=== PATIENT | male | born 1945 | race Caucasian/White ===

== ENCOUNTER → 2017-07-14 07:59 | Day surgery (SDC) | payer MEDICARE ==
[~2017-07-14] VITALS: Ht 177.8 cm; Wt 76.2 kg
[~2017-07-14 07:59] MED LIST: CARDIZEM120 MG PO; CORDARONE200 MG PO; FLOMAX0.4 MG PO; HYDROCODON-ACE1 EAC7 PO; MELATONIN5 MG PO; MIRALAX17 GM PO; REGLAN5 MG PO; RENVELA800 MG PO; VITAMIN D5000 UNIT PO
[2017-07-14 08:54] LABS: BASOPHILS 0.7 % (0-2); EOSINOPHILS 1.6 % (0-7); HEMATOCRIT 34.8 % (42.0-54.0); HEMOGLOBIN 11.2 g/dL (13.5-17.5); IMMATURE GRANULOCYTES 0.4 % (0-5); LYMPHOCYTES 22.1 % (15-50); MCH 29.5 pg (26.0-34.0); MCHC 32.2 g/dL (31.0-37.0); MCV 91.6 fL (80.0-100.0); MONOCYTES 10.4 % (2-11); NEUTROPHILS 64.8 % (40-80); PLATELET COUNT 180 10x3/uL (130-400); RDW 15.5 % (11.5-14.5); WBC 5.5 10x3/uL (4.8-10.8)
[2017-07-14 09:05] LABS: ANION GAP 17.5 mmol/L (8-16); CALCIUM 7.8 mg/dL (8.5-10.1); CREATININE - SERUM 6.5 mg/dL (0.6-1.3); POTASSIUM - SERUM 4.5 mmol/L (3.5-5.1)
[2017-07-14 09:06] VITALS: Ht 177.8 cm; Wt 76.2 kg
[2017-07-14 09:08] LABS: APTT 30.9 SECONDS (22.8-39.4); INR 1.12 (0.85-1.17)
--- NOTE | 2017-07-14 11:13 | NUR ---
SLING TO LEFT ARM, WEAR FIRST 24HR PER DR. GLEZ, R/T ANESTHESIA BLOCK
--- NOTE | 2017-07-14 15:30 | NUR ---
1300 IV DC WITH CATHER TIP INTACT
--- NOTE | 2017-07-17 11:12 | OP ---
PATIENT NAME: GUILHERME JUSTICE MEDICAL RECORD: [id number] :49 LOCATION:[facility] ADMISSION DATE: SURGEON: ZAINA GLEZ MD DATE OF OPERATION: 07/14/2017 DATE OF PROCEDURE: 07/14/2017 REFERRING PHYSICIAN: Leonard Rosas MD SURGEON: Zaina Glez MD PREOPERATIVE DIAGNOSES: End-stage renal disease and dependence on hemodialysis. POSTOPERATIVE DIAGNOSES: End-stage renal disease and dependence on hemodialysis. OPERATION PERFORMED: Creation of a left wrist Yovana-type radiocephalic AV fistula. ANESTHESIA: Regional nerve block plus MAC per LIVING SKILLS ADVISOR. PREOPERATIVE NOTE: Mr. Justice is a 72-year-old -Indian with end-stage renal disease, who requires long-term access. He has pretty good vein in his left arm at the wrist and is brought to the OR today for creation of a fistula. Under nerve block and the sedation, the patient was placed in supine position, prepped and draped in sterile manner. The patient had good vasodilatation resulting from the nerve block. I did apply some nitroglycerin ointment and a proximal venous tourniquet and then examined him with ultrasound and confirmed that the cephalic vein from the wrist to the shoulder was suitable. I then made a longitudinal incision at the wrist to mobilize the cephalic vein and the radial artery. The vessels were controlled with atraumatic clamps and Silastic loops. The vein was ligated distally and transected and bevelled and flushed with heparinized saline. The artery was occluded with Silastic loops and an arteriotomy approximately 6 mm in length was made and the artery flushed proximally and distally with heparinized saline. The end of vein was then anastomosed to the side of artery with continuous running 7-0 Prolene. When complete and with release of the occluding clamps and loops, excellent flow was established in the new fistula as demonstrated by palpable thrill and continuous pulsatile flow on audible Doppler signal. The suture line was hemostatic. The wound was irrigated with Ancef and gentamicin solution. It was then closed with interrupted inverted 3-0 Vicryl and running intracuticular 4-0 Monocryl and Dermabond glue. It was dressed with Maxorb Ag, Tegaderm and Cavilon skin prep. The patient was awakened and then taken to the recovery room where he arrived with an audible bruit over the new fistula. Blood loss during the procedure was trivial and unreplaced. All sponges, instruments and needles were accounted for. No drain was used and no surgical specimen was submitted for histopathology. PLAN: The patient should be able to be discharged this afternoon. He will return to see me in my office next week. He will continue all of the same medications and renal diet. He may shower and wash over the waterproof plastic dressing of course. OPERATIVE REPORT [id number] CALIXTOGUILHERME ZOFIA TRANSINT:[id number] Voice Confirmation ID: [id number] DOCUMENT ID: [id number] ZAINA GLEZ MD at 1112 CC: LEONARD ROSAS MD [id number] DICTATION DATE: 07/14/17 1155 HOTEL BREAKFAST ATTENDANT: 07/14/17 1218 [facility] 07/14/17 [facility] [address] [place] [address]
== END | disposition home or self-care (01) ==
LOC: D.OPS 07:59
PROVIDERS: Internal Medicine Nephrology
DX: I12.0 Hypertensive chronic kidney disease with stage 5 chronic kidney disease or end stage renal disease (principal); E11.22 Type 2 diabetes mellitus with diabetic chronic kidney disease; N18.6 End stage renal disease; Z99.2 Dependence on renal dialysis; Z01.812 Encounter for preprocedural laboratory examination

== ENCOUNTER 2017-09-01 08:05 | Outpatient (CLI) | payer MEDICARE ==
[~2017-09-01] VITALS: Ht 177.8 cm; Wt 76.2 kg
[~2017-09-01 08:05] MED LIST changes: -MIRALAX17 GM PO
[2017-09-01 09:16] LABS: BASOPHILS 0.9 % (0-2); EOSINOPHILS 2.2 % (0-7); HEMATOCRIT 39.8 % (42.0-54.0); HEMOGLOBIN 12.7 g/dL (13.5-17.5); IMMATURE GRANULOCYTES 0.4 % (0-5); LYMPHOCYTES 17.7 % (15-50); MCH 29.6 pg (26.0-34.0); MCHC 31.9 g/dL (31.0-37.0); MCV 92.8 fL (80.0-100.0); MEAN PLATELET VOLUME 8.8 fL (7.4-10.4); MONOCYTES 8.8 % (2-11); PLATELET COUNT 157 10x3/uL (130-400); RBC 4.29 10x6/uL (4.20-6.10); RDW 14.8 % (11.5-14.5); WBC 6.9 10x3/uL (4.8-10.8)
[2017-09-01 09:28] LABS: APTT 32.8 SECONDS (22.8-39.4); INR 1.13 (0.85-1.17); PROTIME 14.1 SECONDS (11.6-15.0)
[2017-09-01 09:31] LABS: CALCIUM 8.6 mg/dL (8.5-10.1); CARBON DIOXIDE 29.5 mmol/L (21.0-32.0); CREATININE - SERUM 7.2 mg/dL (0.6-1.3); POTASSIUM - SERUM 4.5 mmol/L (3.5-5.1)
[2017-09-01] MEDS ORDERED: MIRALAX17 GM PO (12:13)
[2017-09-01 12:16] VITALS: Ht 177.8 cm; Wt 76.2 kg
== END 2017-09-01 15:30 | disposition home or self-care (01) ==
LOC: D.OPS 08:05 → EDSTATUS 12:30 → D.OPS 12:30
PROVIDERS: Internal Medicine Nephrology
DX: E11.22 Type 2 diabetes mellitus with diabetic chronic kidney disease (principal); I12.0 Hypertensive chronic kidney disease with stage 5 chronic kidney disease or end stage renal disease; N18.6 End stage renal disease; Z99.2 Dependence on renal dialysis; Z01.810 Encounter for preprocedural cardiovascular examination; Z01.811 Encounter for preprocedural respiratory examination; Z01.812 Encounter for preprocedural laboratory examination; Z53.9 Procedure and treatment not carried out, unspecified reason

== ENCOUNTER 2017-10-06 06:03 | Day surgery (SDC) | payer MEDICARE ==
--- NOTE | ~2017-10-06 | OP ---
PATIENT NAME: GUILHERME JUSTICE MEDICAL RECORD: [id number] :49 LOCATION:[facility] ADMISSION DATE: SURGEON: ZAINA GLEZ MD DATE OF OPERATION: 10/06/2017 REFERRING PHYSICIAN: Leonard Rosas MD PREOPERATIVE DIAGNOSES: End-stage renal disease independence on hemodialysis and thrombosis of recently constructed left wrist radiocephalic Yovana type arteriovenous fistula. POSTOPERATIVE DIAGNOSES: End-stage renal disease independence on hemodialysis and thrombosis of recently constructed left wrist radiocephalic Yovana type arteriovenous fistula. OPERATION PERFORMED: Creation of a Yovana type brachiocephalic AV fistula at the antecubital level in the left upper extremity. SURGEON: Zaina Glez MD ANESTHESIA: Regional block and general with LMA per SEXUAL ASSAULT COUNSELLOR. PREOPERATIVE NOTE: Mr. Justice is a 72-year-old white male patient with end-stage renal disease, presently on dialysis with a right internal jugular tunneled dialysis catheter. I have created a left wrist radiocephalic fistula, which although it functioned quite well at first, thrombosed early and never matured and was never used. He still requires long-term access and he is brought back to the operating room for another try. Hopefully, the cephalic vein above the level of the initial anastomosis has dilated and bevel along with the nerve block will make the operation easier and more successful. DESCRIPTION OF PROCEDURE: Under anesthesia in supine position, the patient was prepped and draped in sterile manner. I applied a Saige drain to the upper arm and nitroglycerin paste to the skin of the arm and forearm. Duplex ultrasound exam was then done and I found that the brachial artery and cephalic vein at the antecubital level just below the antecubital crease was the best combination for his next fistula. I then made a transverse incision, mobilized both vessels. Closed the vein distally with 2 Hemoclips and then transected and bevelled it. It was flushed with heparinized saline and distended hydrostatically, was treated with topical papaverine and occluded proximally with a bulldog clamp. The artery was exposed and controlled proximally and distally with Silastic loops. The artery was opened and an approximately 6-7 mm long arteriotomy made. The artery was flushed proximally and distally with heparinized saline and the vein was then anastomosed the end of vein to side of artery with running 7-0 Prolene. When completed, the anastomosis was watertight and under no tension and good flow immediately developed within it and there was excellent pulsatile and continuous Doppler flow within the new fistula and in the proximal brachial artery. In the distal brachial artery, there was a normal pulsatile high resistance flow pattern, which was also very very satisfactory. The wound was closed with interrupted inverted 3-0 Vicryl and running intracuticular 4-0 Monocryl and Dermabond glue. It was dressed with Maxorb Ag, Tegaderm, and Cavilon skin prep and the patient awakened and taken to the recovery room where he was found to have an excellent bruit. He will be discharged to home today. Given a prescription for 10 tablets of OPERATIVE REPORT [id number] CALIXTOGUILHERMEMARIA G Lovett , he can take 1 every 4 hours p.r.n. for pain, no refills of course. Used to return to see me and have an appointment made to return to see me in 2 weeks in my office. He can leave the initial operative dressing on until that time or he can remove it whenever he wishes. He can wash over the waterproof plastic dressing with soap and water as desired. He will continue all of the same home medications. Continue his routine dialysis schedule and his activities and renal diet. TRANSINT:[id number] Voice Confirmation ID: [id number] DOCUMENT ID: [id number] ZAINA GLEZ MD at 1459 CC: LEONARD ROSAS [id number] DICTATION DATE: 10/06/17 1117 HEADING MACHINE OPERATOR: 10/06/17 1312 [facility] 10/06/17 [facility] [address] [place] [address]
[~2017-10-06 06:03] MED LIST changes: +MIRALAX17 GM PO
[2017-10-06] MEDS ORDERED: MULTIVITAMIN PO (06:56)
[2017-10-06] MEDS ORDERED: GLUCOSAMINE & C1 CAP PO (06:57)
[2017-10-06 07:12] LABS: CALCIUM 8.4 mg/dL (8.5-10.1); CARBON DIOXIDE 25.9 mmol/L (21.0-32.0); CREATININE - SERUM 6.9 mg/dL (0.6-1.3); POTASSIUM - SERUM 3.9 mmol/L (3.5-5.1)
[2017-10-06 07:16] LABS: BASOPHILS 0.9 % (0-2); EOSINOPHILS 2.1 % (0-7); HEMATOCRIT 35.9 % (42.0-54.0); HEMOGLOBIN 11.6 g/dL (13.5-17.5); IMMATURE GRANULOCYTES 0.4 % (0-5); MCH 29.8 pg (26.0-34.0); MCHC 32.3 g/dL (31.0-37.0); MCV 92.3 fL (80.0-100.0); MEAN PLATELET VOLUME 8.9 fL (7.4-10.4); MONOCYTES 7.7 % (2-11); NEUTROPHILS 67.9 % (40-80); PLATELET COUNT 123 10x3/uL (130-400); RBC 3.89 10x6/uL (4.20-6.10); RDW 15.6 % (11.5-14.5); WBC 6.8 10x3/uL (4.8-10.8)
[2017-10-06 07:21] LABS: APTT 33.9 SECONDS (22.8-39.4); INR 1.18 (0.85-1.17); PROTIME 14.6 SECONDS (11.6-15.0)
[2017-10-06] MEDS ORDERED: HYDROCODON-ACE1 EAC7 PO (11:05)
== END 2017-10-06 13:00 | disposition home or self-care (01) ==
LOC: D.OPS 06:03
PROVIDERS: Internal Medicine Nephrology
DX: E11.22 Type 2 diabetes mellitus with diabetic chronic kidney disease (principal); I12.0 Hypertensive chronic kidney disease with stage 5 chronic kidney disease or end stage renal disease; N18.6 End stage renal disease; Z99.2 Dependence on renal dialysis; Z01.812 Encounter for preprocedural laboratory examination